=== PATIENT | male | born 1990 | race Caucasian/White ===

== ENCOUNTER 2019-06-24 13:28 | Emergency (ER) | payer OTHER ==
[~2019-06-24] VITALS: Ht 198.1 cm; Wt 104.0 kg
[2019-06-24 14:07] LABS: BASOPHILS % (AUTO) 0.1 % (0-1); EOSINOPHILS % (AUTO) 0.1 % (0-6); HEMATOCRIT 44.4 % (42.0-52.0); LYMPHOCYTES # (AUTO) 0.9 X10'3 (1.1-4.8); LYMPHOCYTES % (AUTO) 7.4 % (21-51); MEAN CORPUSCULAR HEMOGLOBIN 28.7 PG (27.0-31.0); MEAN CORPUSCULAR HGB CONC 33.9 g/dL (33.0-36.5); MEAN CORPUSCULAR VOLUME 84.7 FL (78-98); MEAN PLATELET VOLUME 9.8 FL (7.4-10.4); MONOCYTES # (AUTO) 0.5 X10'3 (0-0.9); MONOCYTES % (AUTO) 3.8 % (2-12); NEUTROPHILS # (AUTO) 10.7 X10'3 (1.8-7.7); NEUTROPHILS % (AUTO) 88.6 % (42-75); PLATELET COUNT 168 X10'3 (140-440); RED BLOOD COUNT 5.24 X10'6 (4.70-6.10); WHITE BLOOD COUNT 12.1 X10'3 (4.5-11.0)
[2019-06-24] MEDS ORDERED: metoclopramide 5 mg/ml inj IV STA (14:11)
--- NOTE | 2019-06-24 14:12 | NUR ---
emesis x 2 since in ed,verbal order obtained from Dr. Coleman for reglan 5mg x1 iv.
[2019-06-24 14:21] LABS: ALANINE AMINOTRANSFERASE 27 U/L (12-78); ALBUMIN 4.4 G/DL (3.4-5.0); ALBUMIN/GLOBULIN RATIO 1.7 (1.1-1.5); ALKALINE PHOSPHATASE 85 IU/L (46-116); ANION GAP 13 (8-16); ASPARTATE AMINO TRANSFERASE 22 U/L (10-37); BILIRUBIN,TOTAL 0.8 MG/DL (0.1-1.0); BLOOD UREA NITROGEN 16 MG/DL (7-18); BUN/CREATININE RATIO 11.8 (5.4-32.0); CALCIUM 8.8 MG/DL (8.5-10.1); CHLORIDE 105 MMOL/L (99-107); CREATININE 1.36 MG/DL (0.60-1.10); GLUCOSE 139 MG/DL (70-104); LIPASE 114 U/L (73-393); POTASSIUM 3.6 MMOL/L (3.5-5.1); SODIUM 141 MMOL/L (135-145); TOTAL CARBON DIOXIDE 22.7 MMOL/L (24-32); eGFR 61 ML/MIN
[2019-06-24] MEDS ORDERED: normal saline 1000ML IV soln IVB ONE (14:25)
[2019-06-24 14:41] LABS: ETHANOL < 0.010 GM/DL (0.0-0.010)
[2019-06-24 14:49] LABS: CLARITY,URINE CLEAR (Clear); COLOR,URINE YELLOW (Yellow); GLUCOSE, URINE NEGATIVE (Neg); KETONES,URINE 15 mg/dl (Neg); LEUKOCYTE ESTERASE ,URINE NEGATIVE (Neg); NITRITES, URINE NEGATIVE (Neg); OCCULT BLOOD,URINE NEGATIVE (Neg); PROTEIN,URINE NEGATIVE (Neg); UROBILINOGEN,URINE 0.2 E.U/dL (0.2-1.0)
[2019-06-24 14:50] LABS: UA COLLECTION TYPE URINAL
[2019-06-24 15:01] LABS: URINE AMPHETAMINE SCREEN NEGATIVE (Neg); URINE BARBITUATE SCREEN NEGATIVE (Neg); URINE BENZODIAZEPINES SCREEN NEGATIVE (Neg); URINE CANNABINOID SCREEN POSITIVE (Neg); URINE COCAINE SCREEN POSITIVE (Neg); URINE METHADONE SCREEN NEGATIVE (Neg); URINE OPIATE SCREEN NEGATIVE (Neg); URINE PHENCYCLIDINE SCREEN NEGATIVE (Neg)
[2019-06-24] MEDS ORDERED: LORazepam 2 mg/ml vial IV ONE (15:10)
--- NOTE | 2019-06-24 15:24 | NUR ---
gave pt pillow and warm blanket, lights dimmed, pt has ride home with [employer],
--- NOTE | 2019-06-24 15:40 | NUR ---
PATIENT ASLEEP AT THIS TIME.
[2019-06-24] MEDS ORDERED: morphine 4 MG/ML inj SYRINge IV ONE ×2 (15:45→17:50)
[2019-06-24] MEDS ORDERED: PROM12.512 PO (17:49)
[2019-06-24] MEDS ORDERED: ketorolac tromethamine 15mg/ml inj. IV ONE (17:50)
[2019-06-24] MEDS ORDERED: metoclopramide 5 mg/ml inj IV ONE (17:50)
[2019-06-24 18:27] VITALS: BP 115/82
== END 2019-06-24 18:32 | disposition home or self-care (01) ==
LOC: ER 13:30 → EDBD 13:30 → ER 18:32
DX: K29.70 Gastritis, unspecified, without bleeding (principal); F14.10 Cocaine abuse, uncomplicated; F41.9 Anxiety disorder, unspecified; F12.90 Cannabis use, unspecified, uncomplicated; Z79.899 Other long term (current) drug therapy
CPT/HCPCS: 36415; 80053; 80305; 80320; 81003; 83605; 83690; 85025; 96361; 96374; 96375; 96376; 99283; J1885; J2060; J2270; J2765; J7030